=== PATIENT | male | born 1975 | race Caucasian/White ===

== ENCOUNTER 2017-09-29 21:41 | Inpatient (IN) | payer OTHER ==
[~2017-09-29] VITALS: Ht 177.8 cm; Wt 93.4 kg
[2017-09-29 22:55] VITALS: BP 122/69
[2017-09-30] MEDS ORDERED: fentaNYL PF VIAL 100 MCG/2 ML VIAL IV PRN (00:15)
[2017-09-30] MEDS ORDERED: ONDANSETRON PF 4 MG/2 ML VIAL. IV PRN (00:15)
[2017-09-30] MEDS: IV NORMAL SALINE 1000ML BAG 1,000 ML IV SCH ×4 (00:16→20:28)
[2017-09-30 03:00] VITALS: BP 150/87
[2017-09-30] MEDS ORDERED: BUSP5TAB PO (03:41)
[2017-09-30 04:10] LABS: HEMATOCRIT 40.6 % (39.0-53.0); HEMOGLOBIN 14.5 g/dL (13.0-17.5); RED BLOOD COUNT 4.34 x10^6/uL (4.30-5.70); RED CELL DISTRIBUTION WIDTH 13.6 % (11.5-14.5)
[2017-09-30 04:28] LABS: ALBUMIN/GLOBULIN RATIO 0.8 (1.0-1.7); CALCIUM 8.7 mg/dL (8.5-10.1); CREATININE 1.1 mg/dL (0.7-1.3); GFR 73.1; POTASSIUM 3.8 mmol/L (3.5-5.1); TOTAL BILIRUBIN 1.5 mg/dL (0.2-1.0); TOTAL PROTEIN 6.7 g/dL (6.4-8.2)
[2017-09-30 07:00] VITALS: BP 118/71
[2017-09-30] MEDS ORDERED: ACETAMINOPHEN 500 MG TABLET PO PRN (08:30)
[2017-09-30] MEDS: busPIRone 5 MG TABLET. PO SCH (09:57)
--- NOTE | 2017-09-30 10:12 | PDOC1 ---
History and Physical Date of Admission Date of Admission DATE: 09/30/17 TIME: 10:07 Identification/Chief Complaint Chief Complaint Abdominal pain, vomiting Source Source: Caregiver, Chart review, Patient History of Present Illness History of Present Illness Very pleasant 42-year-old male with no significant past medical history acute onset goerge-umbilical and epigastric area abdominal pain, with some vomiting. No recent travels, no recent sick contacts, no suspicious foods. No fever. Went to [facility]. Acute abdominal series showed mild partial SBO. Transferred here. Did have vomiting this morning and had a decent BM this morning and feels much better. I'm able to palpate the belly with no pain. We' ll check a KUB if that is the appropriate test? and if that is okay we'll start a liquid diet then DIANNA Pedraza. Discussed with at bedside No prior history of abdominal surgeries, non-narcotic user Past Medical History Cardiovascular: No pertinent hx Pulmonary: No pertinent hx GI: No pertinent hx Heme/Onc: No pertinent hx Hepatobiliary: No pertinent hx Psych: No pertinent hx Rheumatologic: No pertinent hx Infectious disease: No pertinent hx ENT: No pertinent hx Renal/: No pertinent hx Endocrine: No pertinent hx Dermatology: No pertinent hx Past Surgical History Past Surgical History: No pertinent history Family History Family History: No Significant Social History Smoke: No ALCOHOL: none Drugs: None Current Medications Current Medications Current Medications Sodium Chloride 1,000 ml @ 125 mls/hr Q8HRS IV Last administered on 09/30/17at 08:38; Start 09/30/17 at 00:15 Ondansetron HCl (Zofran) 4 mg PRN Q6HRS PRN IV NAUSEA/VOMITING; Start 09/30/17 at 00:15 Fentanyl Citrate (Fentanyl 2ml Vial) 50 mcg PRN Q4HRS PRN IV PAIN; Start at 00:15 Acetaminophen (Tylenol) 500 mg PRN Q6HRS PRN PO MILD PAIN / TEMP; Start at 08:30 Buspirone HCl (Buspar) 7.5 mg DAILY PO Last administered on 09/30/17at 09:57; Start 09/30/17 at 09:00 Active Scripts Active Reported Buspirone Hcl 5 Mg Tablet 1.5 Tab PO DAILY Allergies Allergies: Coded Allergies: No Known Drug Allergies (Unverified , 09/29/17) ROS Review of System A 14 point ROS was completed with the following noted as positive: Other systems reviewed and negative. \CONSTITUTIONAL: No fever or chills EYES: No recent changes SKIN: No rash or itching CARDIOVASCULAR: No chest pain, syncope, palpitations, or edema RESPIRATORY: No SOB or cough GASTROINTESTINAL: No nausea, vomiting or abdominal pain NEUROLOGICAL: No headaches or weakness ENDOCRINE: No cold or heat intolerance GENITOURINARY: No urgency or frequency of urination MUSCULOSKELETAL: No back pain or joint pain LYMPHATICS: No enlarged lymph nodes PSYCHIATRIC: No anxiety or depression Physical Exam General: Alert, Oriented X3, Cooperative, No acute distress HEENT: Atraumatic, EOMI Lungs: Clear to auscultation, Normal air movement Heart: S1S2, RRR, no thrills, no rubs, no gallops, no murmurs Cardiovascular: S1, S2 Abdomen: Normal bowel sounds, Soft, No tenderness, No hepatosplenomegaly, No masses Male Genitals Exam: normal genitalia, normal prostate Rectal Exam: not examined Extremities: No clubbing, No cyanosis, No edema, Normal pulses, No tenderness/ swelling Skin: No rashes, No breakdown, No significant lesion Neuro: Normal gait, Normal speech, Strength at 5/5 X4 ext, Normal tone, Sensation intact, Cranial nerves 3-12 NL, Reflexes 2+ Psych/Mental Status: Mental status NL, Mood NL Vitals Vitals Vital Signs Date Time Temp Pulse Resp B/P (MAP) Pulse Ox O2 Delivery O2 Flow Rate FiO2 09/30/17 07:00 98.1 69 18 118/71 (87) 95 Room Air 98.1 Labs Labs Laboratory Tests Test 09/30/17 03:35 White Blood Count 8.0 x10^3/uL (4.0-11.0) Red Blood Count 4.34 x10^6/uL (4.30-5.70) Hemoglobin 14.5 g/dL (13.0-17.5) Hematocrit 40.6 % (39.0-53.0) Mean Corpuscular Volume 94 fL (79-100) Mean Corpuscular Hemoglobin 33 pg (25-35) Mean Corpuscular Hemoglobin Concent 36 g/dL (31-37) Red Cell Distribution Width 13.6 % (11.5-14.5) Platelet Count 208 x10^3/uL (140-400) Sodium Level 137 mmol/L (136-145) Potassium Level 3.8 mmol/L (3.5-5.1) Chloride Level 102 mmol/L (98-107) Carbon Dioxide Level 27 mmol/L (21-32) Anion Gap 8 (6-14) Blood Urea Nitrogen 12 mg/dL (8-26) Creatinine 1.1 mg/dL (0.7-1.3) Estimated GFR (Cockcroft-Gault) 73.1 BUN/Creatinine Ratio 11 (6-20) Glucose Level 96 mg/dL (70-99) Calcium Level 8.7 mg/dL (8.5-10.1) Magnesium Level 2.0 mg/dL (1.8-2.4) Total Bilirubin 1.5 mg/dL (0.2-1.0) Aspartate Amino Transf (AST/SGOT) 15 U/L (15-37) Alanine Aminotransferase (ALT/SGPT) 20 U/L (16-63) Alkaline Phosphatase 67 U/L (46-116) Total Protein 6.7 g/dL (6.4-8.2) Albumin 3.0 g/dL (3.4-5.0) Albumin/Globulin Ratio 0.8 (1.0-1.7) Laboratory Tests Test 09/30/17 03:35 White Blood Count 8.0 x10^3/uL (4.0-11.0) Red Blood Count 4.34 x10^6/uL (4.30-5.70) Hemoglobin 14.5 g/dL (13.0-17.5) Hematocrit 40.6 % (39.0-53.0) Mean Corpuscular Volume 94 fL (79-100) Mean Corpuscular Hemoglobin 33 pg (25-35) Mean Corpuscular Hemoglobin Concent 36 g/dL (31-37) Red Cell Distribution Width 13.6 % (11.5-14.5) Platelet Count 208 x10^3/uL (140-400) Sodium Level 137 mmol/L (136-145) Potassium Level 3.8 mmol/L (3.5-5.1) Chloride Level 102 mmol/L (98-107) Carbon Dioxide Level 27 mmol/L (21-32) Anion Gap 8 (6-14) Blood Urea Nitrogen 12 mg/dL (8-26) Creatinine 1.1 mg/dL (0.7-1.3) Estimated GFR (Cockcroft-Gault) 73.1 BUN/Creatinine Ratio 11 (6-20) Glucose Level 96 mg/dL (70-99) Calcium Level 8.7 mg/dL (8.5-10.1) Magnesium Level 2.0 mg/dL (1.8-2.4) Total Bilirubin 1.5 mg/dL (0.2-1.0) Aspartate Amino Transf (AST/SGOT) 15 U/L (15-37) Alanine Aminotransferase (ALT/SGPT) 20 U/L (16-63) Alkaline Phosphatase 67 U/L (46-116) Total Protein 6.7 g/dL (6.4-8.2) Albumin 3.0 g/dL (3.4-5.0) Albumin/Globulin Ratio 0.8 (1.0-1.7) VTE Prophylaxis Ordered VTE Prophylaxis Devices: Yes VTE Pharmacological Prophylaxi: Yes Assessment/Plan Assessment/Plan Mild Partial SBO, seems to have resolved Nonnarcotic user No significant abdominal surgeries/abdominal history Plan: Check KUB (if GS agrees with this choice of test) If KUB is okay, I'm inclined to starting a liquid diet if GS agrees Discussed with patient and RN and at bedside ALEKSANDAR MATTHEW MD Sep 30, 2017 10:12
[2017-09-30 11:00] VITALS: BP 114/72
--- NOTE | 2017-09-30 11:34 | PDOC2 ---
CONSULT Date of Consult Date of Consult DATE: 09/30/17 TIME: 11:30 Reason for Consult Reason for Consult: Abdominal pain Identification/Chief Complaint Chief Complaint Left lower quadrant abdominal pain Source Source: Patient History of Present Illness Reason for Visit: 42-year-old male developed left lower quadrant abdominal pain couple days ago with bloating nausea and vomiting. Seen in the emergency department CT scan at that time showed evidence of small bowel obstruction and inflammation of the sigmoid colon consistent with diverticulitis no evidence of perforation or abscess. Today the patient states he is feeling better still having some mild left lower quadrant abdominal pain did have 1 episode of emesis this morning but then a large bowel movement which improved his condition. Currently denies any nausea Past Medical History Cardiovascular: No pertinent hx Pulmonary: No pertinent hx GI: No pertinent hx Heme/Onc: No pertinent hx Hepatobiliary: No pertinent hx Psych: No pertinent hx Rheumatologic: No pertinent hx Infectious disease: No pertinent hx ENT: No pertinent hx Renal/: No pertinent hx Endocrine: No pertinent hx Dermatology: No pertinent hx Past Surgical History Past Surgical History: No pertinent history Family History Family History: No Significant Social History No ALCOHOL: none Drugs: None Current Medications Current Medications Current Medications Sodium Chloride 1,000 ml @ 125 mls/hr Q8HRS IV Last administered on 09/30/17at 08:38; Start 09/30/17 at 00:15 Ondansetron HCl (Zofran) 4 mg PRN Q6HRS PRN IV NAUSEA/VOMITING; Start 09/30/17 at 00:15 Fentanyl Citrate (Fentanyl 2ml Vial) 50 mcg PRN Q4HRS PRN IV PAIN; Start at 00:15 Acetaminophen (Tylenol) 500 mg PRN Q6HRS PRN PO MILD PAIN / TEMP; Start at 08:30 Buspirone HCl (Buspar) 7.5 mg DAILY PO Last administered on 09/30/17at 09:57; Start 09/30/17 at 09:00 Active Scripts Active Reported Buspirone Hcl 5 Mg Tablet 1.5 Tab PO DAILY Allergies Allergies: Coded Allergies: No Known Drug Allergies (Unverified , 09/29/17) ROS Gastrointestinal: Yes Nausea, Yes Vomiting, Yes Abdominal Pain Physical Exam General: Alert, Oriented X3, Cooperative, mild distress HEENT: Atraumatic, PERRLA, EOMI Lungs: Clear to auscultation, Normal air movement Heart: Regular rate, No murmurs Abdomen: Normal bowel sounds, Soft, Other (palpation left lower quadrant no peritoneal signs) Extremities: No edema Skin: No significant lesion Neuro: Normal speech Psych/Mental Status: Mental status NL Vitals VITALS Vital Signs Date Time Temp Pulse Resp B/P (MAP) Pulse Ox O2 Delivery O2 Flow Rate FiO2 09/30/17 11:00 97.9 65 18 114/72 (86) 95 Room Air 97.9 Labs Labs Laboratory Tests Test 09/30/17 03:35 White Blood Count 8.0 x10^3/uL (4.0-11.0) Red Blood Count 4.34 x10^6/uL (4.30-5.70) Hemoglobin 14.5 g/dL (13.0-17.5) Hematocrit 40.6 % (39.0-53.0) Mean Corpuscular Volume 94 fL (79-100) Mean Corpuscular Hemoglobin 33 pg (25-35) Mean Corpuscular Hemoglobin Concent 36 g/dL (31-37) Red Cell Distribution Width 13.6 % (11.5-14.5) Platelet Count 208 x10^3/uL (140-400) Sodium Level 137 mmol/L (136-145) Potassium Level 3.8 mmol/L (3.5-5.1) Chloride Level 102 mmol/L (98-107) Carbon Dioxide Level 27 mmol/L (21-32) Anion Gap 8 (6-14) Blood Urea Nitrogen 12 mg/dL (8-26) Creatinine 1.1 mg/dL (0.7-1.3) Estimated GFR (Cockcroft-Gault) 73.1 BUN/Creatinine Ratio 11 (6-20) Glucose Level 96 mg/dL (70-99) Calcium Level 8.7 mg/dL (8.5-10.1) Magnesium Level 2.0 mg/dL (1.8-2.4) Total Bilirubin 1.5 mg/dL (0.2-1.0) Aspartate Amino Transf (AST/SGOT) 15 U/L (15-37) Alanine Aminotransferase (ALT/SGPT) 20 U/L (16-63) Alkaline Phosphatase 67 U/L (46-116) Total Protein 6.7 g/dL (6.4-8.2) Albumin 3.0 g/dL (3.4-5.0) Albumin/Globulin Ratio 0.8 (1.0-1.7) Laboratory Tests Test 09/30/17 03:35 White Blood Count 8.0 x10^3/uL (4.0-11.0) Red Blood Count 4.34 x10^6/uL (4.30-5.70) Hemoglobin 14.5 g/dL (13.0-17.5) Hematocrit 40.6 % (39.0-53.0) Mean Corpuscular Volume 94 fL (79-100) Mean Corpuscular Hemoglobin 33 pg (25-35) Mean Corpuscular Hemoglobin Concent 36 g/dL (31-37) Red Cell Distribution Width 13.6 % (11.5-14.5) Platelet Count 208 x10^3/uL (140-400) Sodium Level 137 mmol/L (136-145) Potassium Level 3.8 mmol/L (3.5-5.1) Chloride Level 102 mmol/L (98-107) Carbon Dioxide Level 27 mmol/L (21-32) Anion Gap 8 (6-14) Blood Urea Nitrogen 12 mg/dL (8-26) Creatinine 1.1 mg/dL (0.7-1.3) Estimated GFR (Cockcroft-Gault) 73.1 BUN/Creatinine Ratio 11 (6-20) Glucose Level 96 mg/dL (70-99) Calcium Level 8.7 mg/dL (8.5-10.1) Magnesium Level 2.0 mg/dL (1.8-2.4) Total Bilirubin 1.5 mg/dL (0.2-1.0) Aspartate Amino Transf (AST/SGOT) 15 U/L (15-37) Alanine Aminotransferase (ALT/SGPT) 20 U/L (16-63) Alkaline Phosphatase 67 U/L (46-116) Total Protein 6.7 g/dL (6.4-8.2) Albumin 3.0 g/dL (3.4-5.0) Albumin/Globulin Ratio 0.8 (1.0-1.7) Images Images CT as per history of present illness Assessment/Plan Assessment/Plan Abdominal pain with acute diverticulitis ileus secondary to diverticulitis appears to be improving agree with current medical therapy of IV antibiotics bowel rest will follow TERESE CRESPO MD Sep 30, 2017 11:34
--- NOTE | 2017-09-30 12:28 | RAD ---
Single view of the abdomen 09/30/2017 INDICATION: Follow-up small bowel structure COMPARISON STUDY: None available Discussion: Mildly dilated loops of gas-filled small amount seen in the central abdomen. Some distal bowel gas is noted. Differential considerations include small bowel obstruction which may be partial, versus ileus. No gross pneumoperitoneum is identified though exam is limited for this purpose. No pathologic calcifications are identified. No acute osseous abnormalities are seen. IMPRESSION: Mildly dilated loops of gas-filled small bowel central abdomen. Differential considerations include some degree of bowel obstruction versus ileus Electronically signed by: Russell Herring MD (09/30/2017 12:24 PM) [id number]
[2017-09-30] MEDS: FAMOTIDINE 20 MG/2 ML VIAL IVP SCH ×2 (13:06→20:27)
[2017-09-30 15:00] VITALS: BP 105/64
[2017-09-30 19:00] VITALS: BP 113/71
[2017-09-30 23:00] VITALS: BP 104/62
[2017-10-01 03:00] VITALS: BP 112/64
[2017-10-01] MEDS: IV NORMAL SALINE 1000ML BAG 1,000 ML IV SCH ×3 (05:56→22:10)
[2017-10-01 07:00] VITALS: BP 118/68
--- NOTE | 2017-10-01 08:18 | PDOC ---
DEVENDRA DINH ATHLETIC COACH 10/01/17 0818: SURGICAL PROGRESS NOTE Subjective feels better small amount of flatus not bloated Vital Signs Vital Signs Date Time Temp Pulse Resp B/P (MAP) Pulse Ox O2 Delivery O2 Flow Rate FiO2 10/01/17 03:00 97.9 63 18 112/64 (80) 93 Room Air 97.9 I&O Intake and Output 10/01/17 07:00 Intake Total 0 ml Balance 0 ml Intake Oral 0 ml # Voids 8 General: Alert, Oriented X3, Cooperative, No acute distress Abdomen: Soft, No tenderness, Other (ND) Labs Laboratory Tests Test 09/30/17 03:35 White Blood Count 8.0 x10^3/uL (4.0-11.0) Red Blood Count 4.34 x10^6/uL (4.30-5.70) Hemoglobin 14.5 g/dL (13.0-17.5) Hematocrit 40.6 % (39.0-53.0) Mean Corpuscular Volume 94 fL (79-100) Mean Corpuscular Hemoglobin 33 pg (25-35) Mean Corpuscular Hemoglobin Concent 36 g/dL (31-37) Red Cell Distribution Width 13.6 % (11.5-14.5) Platelet Count 208 x10^3/uL (140-400) Sodium Level 137 mmol/L (136-145) Potassium Level 3.8 mmol/L (3.5-5.1) Chloride Level 102 mmol/L (98-107) Carbon Dioxide Level 27 mmol/L (21-32) Anion Gap 8 (6-14) Blood Urea Nitrogen 12 mg/dL (8-26) Creatinine 1.1 mg/dL (0.7-1.3) Estimated GFR (Cockcroft-Gault) 73.1 BUN/Creatinine Ratio 11 (6-20) Glucose Level 96 mg/dL (70-99) Calcium Level 8.7 mg/dL (8.5-10.1) Magnesium Level 2.0 mg/dL (1.8-2.4) Total Bilirubin 1.5 mg/dL (0.2-1.0) Aspartate Amino Transf (AST/SGOT) 15 U/L (15-37) Alanine Aminotransferase (ALT/SGPT) 20 U/L (16-63) Alkaline Phosphatase 67 U/L (46-116) Total Protein 6.7 g/dL (6.4-8.2) Albumin 3.0 g/dL (3.4-5.0) Albumin/Globulin Ratio 0.8 (1.0-1.7) Problem List diverticulitis, ileus continue abx await resolution of ileus--check xray in AM TERESE CRESPO MD 10/01/17 0943: SURGICAL PROGRESS NOTE Assessment/Plan Patient seen and evaluated much improved us abdominal pain abdomen is soft nondistended with normal active bowel sounds passing flatus was advanced diet to clear liquids. Agree with Ean assessment and plan DEVENDRA DINH APRN Oct 01, 2017 08:18 TERESE CRESPO MD Oct 01, 2017 09:43
--- NOTE | 2017-10-01 09:29 | PDOC ---
PROGRESS NOTES Chief Complaint Chief Complaint Small Bowel obstruction diverticulitis History of Present Illness History of Present Illness Pt seen and examined, sitting up in bed NAD He said that he had a good bowel movement yesterday morning, but today was very small with some gas. Feeling better but still has mild abd pain recommended changes to diet after DC DW at bedside Vitals Vitals Vital Signs Date Time Temp Pulse Resp B/P (MAP) Pulse Ox O2 Delivery O2 Flow Rate FiO2 10/01/17 07:00 97.9 63 18 118/68 (85) 96 Room Air 97.9 Physical Exam General: Alert, Oriented X3, Cooperative, No acute distress Heart: Regular rate, No murmurs Lungs: Clear Abdomen: Soft, Other (ND) Extremities: No clubbing, No edema Skin: No rashes, No significant lesion Review of Systems Review of Systems CO Abd pain denies Nausea denies IVAN denies weakness Assessment and Plan Assessmemt and Plan Small bowel obstruction diverticulitis Plan: IVF Abx- Levoquin and Flagyl Continue bowel rest PT/OT Labs Appreciate input from subspecialties Comment Review of Relevant I have reviewed the following items maritza (where applicable) has been applied. Labs Laboratory Tests Test 09/30/17 03:35 White Blood Count 8.0 x10^3/uL (4.0-11.0) Red Blood Count 4.34 x10^6/uL (4.30-5.70) Hemoglobin 14.5 g/dL (13.0-17.5) Hematocrit 40.6 % (39.0-53.0) Mean Corpuscular Volume 94 fL (79-100) Mean Corpuscular Hemoglobin 33 pg (25-35) Mean Corpuscular Hemoglobin Concent 36 g/dL (31-37) Red Cell Distribution Width 13.6 % (11.5-14.5) Platelet Count 208 x10^3/uL (140-400) Sodium Level 137 mmol/L (136-145) Potassium Level 3.8 mmol/L (3.5-5.1) Chloride Level 102 mmol/L (98-107) Carbon Dioxide Level 27 mmol/L (21-32) Anion Gap 8 (6-14) Blood Urea Nitrogen 12 mg/dL (8-26) Creatinine 1.1 mg/dL (0.7-1.3) Estimated GFR (Cockcroft-Gault) 73.1 BUN/Creatinine Ratio 11 (6-20) Glucose Level 96 mg/dL (70-99) Calcium Level 8.7 mg/dL (8.5-10.1) Magnesium Level 2.0 mg/dL (1.8-2.4) Total Bilirubin 1.5 mg/dL (0.2-1.0) Aspartate Amino Transf (AST/SGOT) 15 U/L (15-37) Alanine Aminotransferase (ALT/SGPT) 20 U/L (16-63) Alkaline Phosphatase 67 U/L (46-116) Total Protein 6.7 g/dL (6.4-8.2) Albumin 3.0 g/dL (3.4-5.0) Albumin/Globulin Ratio 0.8 (1.0-1.7) Medications Current Medications Sodium Chloride 1,000 ml @ 125 mls/hr Q8HRS IV Last administered on 10/01/17at 05:56; Start 09/30/17 at 00:15 Ondansetron HCl (Zofran) 4 mg PRN Q6HRS PRN IV NAUSEA/VOMITING; Start 09/30/17 at 00:15 Fentanyl Citrate (Fentanyl 2ml Vial) 50 mcg PRN Q4HRS PRN IV PAIN; Start at 00:15 Acetaminophen (Tylenol) 500 mg PRN Q6HRS PRN PO MILD PAIN / TEMP; Start at 08:30 Buspirone HCl (Buspar) 7.5 mg DAILY PO Last administered on 09/30/17at 09:57; Start 09/30/17 at 09:00 Famotidine (Pepcid Vial) 20 mg BID IVP Last administered on 09/30/17at 20:27; Start 09/30/17 at 13:00 Levofloxacin/ Dextrose 100 ml @ 100 mls/hr Q24H IV Last administered on at 16:32; Start 09/30/17 at 16:00 Metronidazole 100 ml @ 100 mls/hr Q8HRS IV Last administered on 10/01/17at 05: 56; Start 09/30/17 at 15:00 Active Scripts Active Reported Buspirone Hcl 5 Mg Tablet 1.5 Tab PO DAILY Vitals/I & O Vital Sign - Last 24 Hours 8/1509/30/17 09/30/17 09/30/17 11:00 15:00 19:00 20:00 Temp 97.9 99.1 97.9 97.9 99.1 97.9 Pulse 65 70 75 Resp 18 18 B/P (MAP) 114/72 (86) 105/64 (78) 113/71 (85) Pulse Ox 95 93 96 O2 Delivery Room Air Room Air Room Air Room Air 09/30/17 10/01/17 10/01/17 23:00 03:00 07:00 Temp 97.9 97.9 97.9 97.9 97.9 97.9 Pulse 64 63 63 Resp 18 B/P (MAP) 104/62 (76) 112/64 (80) 118/68 (85) Pulse Ox 95 93 96 O2 Delivery Room Air Room Air Room Air Intake and Output 09/30/17 09/30/17 10/01/17 15:00 23:00 07:00 Intake Total 0 ml Balance 0 ml ALOK ORTIZ III DO Oct 01, 2017 09:29
[2017-10-01] MEDS: FAMOTIDINE 20 MG/2 ML VIAL IVP SCH (10:25)
[2017-10-01] MEDS: busPIRone 5 MG TABLET. PO SCH (10:26)
[2017-10-01 11:00] VITALS: BP 123/74
[2017-10-01 15:00] VITALS: BP 111/71
[2017-10-01 19:00] VITALS: BP 132/79
[2017-10-01] MEDS: FAMOTIDINE 20 MG TABLET. PO SCH (20:51)
[2017-10-01] MEDS: LACTOBACILLUS RHAMNOSUS GG 1 CAPSULE. PO SCH (20:51)
[2017-10-01 23:00] VITALS: BP 145/89
[2017-10-02 03:00] VITALS: BP 144/68
[2017-10-02] MEDS: IV NORMAL SALINE 1000ML BAG 1,000 ML IV SCH (06:00)
[2017-10-02 07:00] VITALS: BP 112/70
[2017-10-02 07:43] LABS: BASO % 1 % (0-3); EOS # 0.2 x10^3/uL (0.0-0.7); EOS % 4 % (0-3); HEMATOCRIT 37.3 % (39.0-53.0); HEMOGLOBIN 13.3 g/dL (13.0-17.5); LYMPH # 1.1 x10^3/uL (1.0-4.8); LYMPH % 22 % (24-48); MEAN CORPUSCULAR HEMOGLOBIN 33 pg (25-35); MEAN CORPUSCULAR HGB CONC 36 g/dL (31-37); MEAN CORPUSCULAR VOLUME 93 fL (79-100); MONO # 0.4 x10^3/uL (0.0-1.1); MONO % 9 % (0-9); NEUT # 3.1 x10^3uL (1.8-7.7); NEUT % 64 % (31-73); PLATELET COUNT 220 x10^3/uL (140-400); RED CELL DISTRIBUTION WIDTH 13.5 % (11.5-14.5); WHITE BLOOD COUNT 4.9 x10^3/uL (4.0-11.0)
[2017-10-02] MEDS: LACTOBACILLUS RHAMNOSUS GG 1 CAPSULE. PO SCH (07:53)
[2017-10-02] MEDS: FAMOTIDINE 20 MG TABLET. PO SCH (07:53)
[2017-10-02] MEDS: busPIRone 5 MG TABLET. PO SCH (07:53)
--- NOTE | 2017-10-02 08:01 | PDOC ---
DEVENDRA DINH [employer] POSITION OFFICER 10/02/17 0801: SURGICAL PROGRESS NOTE Subjective feeling better no n/v + flatus hunger pain Vital Signs Vital Signs Date Time Temp Pulse Resp B/P (MAP) Pulse Ox O2 Delivery O2 Flow Rate FiO2 10/02/17 03:00 97.7 69 16 144/68 (93) 97 Room Air 97.7 I&O Intake and Output 10/02/17 07:00 Intake Total 1220 ml Balance 1220 ml Intake Oral 120 ml IV Total 1100 ml # Voids 3 General: Alert, Oriented X3, Cooperative, No acute distress Abdomen: Soft, No tenderness Labs Laboratory Tests Test 10/02/17 06:20 White Blood Count 4.9 x10^3/uL (4.0-11.0) Red Blood Count 4.00 x10^6/uL (4.30-5.70) Hemoglobin 13.3 g/dL (13.0-17.5) Hematocrit 37.3 % (39.0-53.0) Mean Corpuscular Volume 93 fL (79-100) Mean Corpuscular Hemoglobin 33 pg (25-35) Mean Corpuscular Hemoglobin Concent 36 g/dL (31-37) Red Cell Distribution Width 13.5 % (11.5-14.5) Platelet Count 220 x10^3/uL (140-400) Neutrophils (%) (Auto) 64 % (31-73) Lymphocytes (%) (Auto) 22 % (24-48) Monocytes (%) (Auto) 9 % (0-9) Eosinophils (%) (Auto) 4 % (0-3) Basophils (%) (Auto) 1 % (0-3) Neutrophils # (Auto) 3.1 x10^3uL (1.8-7.7) Lymphocytes # (Auto) 1.1 x10^3/uL (1.0-4.8) Monocytes # (Auto) 0.4 x10^3/uL (0.0-1.1) Eosinophils # (Auto) 0.2 x10^3/uL (0.0-0.7) Basophils # (Auto) 0.0 x10^3/uL (0.0-0.2) Laboratory Tests Test 10/02/17 06:20 White Blood Count 4.9 x10^3/uL (4.0-11.0) Red Blood Count 4.00 x10^6/uL (4.30-5.70) Hemoglobin 13.3 g/dL (13.0-17.5) Hematocrit 37.3 % (39.0-53.0) Mean Corpuscular Volume 93 fL (79-100) Mean Corpuscular Hemoglobin 33 pg (25-35) Mean Corpuscular Hemoglobin Concent 36 g/dL (31-37) Red Cell Distribution Width 13.5 % (11.5-14.5) Platelet Count 220 x10^3/uL (140-400) Neutrophils (%) (Auto) 64 % (31-73) Lymphocytes (%) (Auto) 22 % (24-48) Monocytes (%) (Auto) 9 % (0-9) Eosinophils (%) (Auto) 4 % (0-3) Basophils (%) (Auto) 1 % (0-3) Neutrophils # (Auto) 3.1 x10^3uL (1.8-7.7) Lymphocytes # (Auto) 1.1 x10^3/uL (1.0-4.8) Monocytes # (Auto) 0.4 x10^3/uL (0.0-1.1) Eosinophils # (Auto) 0.2 x10^3/uL (0.0-0.7) Basophils # (Auto) 0.0 x10^3/uL (0.0-0.2) Problem List ileus xray pending plan advance diet if xrays improved TERESE CRESPO MD 10/02/17 1104: SURGICAL PROGRESS NOTE Assessment/Plan Seen and examined by me feeling very comfortable with like to be more passing stool and flatus denies any pain. KUB does not show any worsening of small bowel distention, we'll advance diet if tolerated would agree with discharge to home DEVENDRA DINH APRN Oct 02, 2017 08:01 TERESE CRESPO MD Oct 02, 2017 11:04
[2017-10-02 08:02] LABS: CALCIUM 8.2 mg/dL (8.5-10.1); GFR 81.6; POTASSIUM 3.7 mmol/L (3.5-5.1)
[2017-10-02 11:00] VITALS: BP 125/74
--- NOTE | 2017-10-02 12:58 | PDOC ---
PROGRESS NOTES Chief Complaint Chief Complaint Small Bowel obstruction diverticulitis History of Present Illness History of Present Illness Pt seen and examined, sitting up in bed pt states he has had multiple bowel movements this AM VSS DW RN Vitals Vitals Vital Signs Date Time Temp Pulse Resp B/P (MAP) Pulse Ox O2 Delivery O2 Flow Rate FiO2 10/02/17 11:00 98.1 63 16 125/74 (91) 96 Room Air 98.1 Physical Exam General: Alert, Oriented X3, Cooperative, No acute distress Heart: Regular rate, No murmurs Lungs: Clear Abdomen: Soft, No tenderness Extremities: No clubbing, No edema Skin: No rashes, No significant lesion Labs LABS Laboratory Tests Test 10/02/17 06:20 White Blood Count 4.9 x10^3/uL (4.0-11.0) Red Blood Count 4.00 x10^6/uL (4.30-5.70) Hemoglobin 13.3 g/dL (13.0-17.5) Hematocrit 37.3 % (39.0-53.0) Mean Corpuscular Volume 93 fL (79-100) Mean Corpuscular Hemoglobin 33 pg (25-35) Mean Corpuscular Hemoglobin Concent 36 g/dL (31-37) Red Cell Distribution Width 13.5 % (11.5-14.5) Platelet Count 220 x10^3/uL (140-400) Neutrophils (%) (Auto) 64 % (31-73) Lymphocytes (%) (Auto) 22 % (24-48) Monocytes (%) (Auto) 9 % (0-9) Eosinophils (%) (Auto) 4 % (0-3) Basophils (%) (Auto) 1 % (0-3) Neutrophils # (Auto) 3.1 x10^3uL (1.8-7.7) Lymphocytes # (Auto) 1.1 x10^3/uL (1.0-4.8) Monocytes # (Auto) 0.4 x10^3/uL (0.0-1.1) Eosinophils # (Auto) 0.2 x10^3/uL (0.0-0.7) Basophils # (Auto) 0.0 x10^3/uL (0.0-0.2) Sodium Level 139 mmol/L (136-145) Potassium Level 3.7 mmol/L (3.5-5.1) Chloride Level 107 mmol/L (98-107) Carbon Dioxide Level 26 mmol/L (21-32) Anion Gap 6 (6-14) Blood Urea Nitrogen 9 mg/dL (8-26) Creatinine 1.0 mg/dL (0.7-1.3) Estimated GFR (Cockcroft-Gault) 81.6 Glucose Level 89 mg/dL (70-99) Calcium Level 8.2 mg/dL (8.5-10.1) Review of Systems Review of Systems no co IVAN decreased abd pain no co hematochezia or melena Assessment and Plan Assessmemt and Plan Assessment: Small Bowel obstruction diverticulitis Plna: home meds PO Flagyl and Levoquin advance diet as tolerated Probable DC if ok with Surgery specialty Comment Review of Relevant I have reviewed the following items maritza (where applicable) has been applied. Labs Laboratory Tests Test 10/02/17 06:20 White Blood Count 4.9 x10^3/uL (4.0-11.0) Red Blood Count 4.00 x10^6/uL (4.30-5.70) Hemoglobin 13.3 g/dL (13.0-17.5) Hematocrit 37.3 % (39.0-53.0) Mean Corpuscular Volume 93 fL (79-100) Mean Corpuscular Hemoglobin 33 pg (25-35) Mean Corpuscular Hemoglobin Concent 36 g/dL (31-37) Red Cell Distribution Width 13.5 % (11.5-14.5) Platelet Count 220 x10^3/uL (140-400) Neutrophils (%) (Auto) 64 % (31-73) Lymphocytes (%) (Auto) 22 % (24-48) Monocytes (%) (Auto) 9 % (0-9) Eosinophils (%) (Auto) 4 % (0-3) Basophils (%) (Auto) 1 % (0-3) Neutrophils # (Auto) 3.1 x10^3uL (1.8-7.7) Lymphocytes # (Auto) 1.1 x10^3/uL (1.0-4.8) Monocytes # (Auto) 0.4 x10^3/uL (0.0-1.1) Eosinophils # (Auto) 0.2 x10^3/uL (0.0-0.7) Basophils # (Auto) 0.0 x10^3/uL (0.0-0.2) Sodium Level 139 mmol/L (136-145) Potassium Level 3.7 mmol/L (3.5-5.1) Chloride Level 107 mmol/L (98-107) Carbon Dioxide Level 26 mmol/L (21-32) Anion Gap 6 (6-14) Blood Urea Nitrogen 9 mg/dL (8-26) Creatinine 1.0 mg/dL (0.7-1.3) Estimated GFR (Cockcroft-Gault) 81.6 Glucose Level 89 mg/dL (70-99) Calcium Level 8.2 mg/dL (8.5-10.1) Laboratory Tests Test 10/02/17 06:20 White Blood Count 4.9 x10^3/uL (4.0-11.0) Red Blood Count 4.00 x10^6/uL (4.30-5.70) Hemoglobin 13.3 g/dL (13.0-17.5) Hematocrit 37.3 % (39.0-53.0) Mean Corpuscular Volume 93 fL (79-100) Mean Corpuscular Hemoglobin 33 pg (25-35) Mean Corpuscular Hemoglobin Concent 36 g/dL (31-37) Red Cell Distribution Width 13.5 % (11.5-14.5) Platelet Count 220 x10^3/uL (140-400) Neutrophils (%) (Auto) 64 % (31-73) Lymphocytes (%) (Auto) 22 % (24-48) Monocytes (%) (Auto) 9 % (0-9) Eosinophils (%) (Auto) 4 % (0-3) Basophils (%) (Auto) 1 % (0-3) Neutrophils # (Auto) 3.1 x10^3uL (1.8-7.7) Lymphocytes # (Auto) 1.1 x10^3/uL (1.0-4.8) Monocytes # (Auto) 0.4 x10^3/uL (0.0-1.1) Eosinophils # (Auto) 0.2 x10^3/uL (0.0-0.7) Basophils # (Auto) 0.0 x10^3/uL (0.0-0.2) Sodium Level 139 mmol/L (136-145) Potassium Level 3.7 mmol/L (3.5-5.1) Chloride Level 107 mmol/L (98-107) Carbon Dioxide Level 26 mmol/L (21-32) Anion Gap 6 (6-14) Blood Urea Nitrogen 9 mg/dL (8-26) Creatinine 1.0 mg/dL (0.7-1.3) Estimated GFR (Cockcroft-Gault) 81.6 Glucose Level 89 mg/dL (70-99) Calcium Level 8.2 mg/dL (8.5-10.1) Medications Current Medications Sodium Chloride 1,000 ml @ 125 mls/hr Q8HRS IV Last administered on 10/01/17at 22:10; Start 09/30/17 at 00:15 Ondansetron HCl (Zofran) 4 mg PRN Q6HRS PRN IV NAUSEA/VOMITING; Start 09/30/17 at 00:15 Fentanyl Citrate (Fentanyl 2ml Vial) 50 mcg PRN Q4HRS PRN IV PAIN; Start at 00:15 Acetaminophen (Tylenol) 500 mg PRN Q6HRS PRN PO MILD PAIN / TEMP; Start at 08:30 Buspirone HCl (Buspar) 7.5 mg DAILY PO Last administered on 10/02/17at 07:53; Start 09/30/17 at 09:00 Famotidine (Pepcid Vial) 20 mg BID IVP Last administered on 10/01/17at 10:25; Start 09/30/17 at 13:00; Stop 10/01/17 at 15:31; Status DC Levofloxacin/ Dextrose 100 ml @ 100 mls/hr Q24H IV Last administered on at 17:41; Start 09/30/17 at 16:00 Metronidazole 100 ml @ 100 mls/hr Q8HRS IV Last administered on 10/02/17at 06: 17; Start 09/30/17 at 15:00 Lactobacillus Rhamnosus (Culturelle) 1 cap BID PO Last administered on at 07:53; Start 10/01/17 at 21:00 Famotidine (Pepcid) 20 mg BID PO Last administered on 10/02/17at 07:53; Start at 21:00 Active Scripts Active Reported Buspirone Hcl 5 Mg Tablet 1.5 Tab PO DAILY Vitals/I & O Vital Sign - Last 24 Hours 10/01/17 10/01/17 10/01/17 10/01/17 15:00 19:00 20:00 23:00 Temp 97.9 97.7 97.9 97.9 97.7 97.9 Pulse 57 62 89 Resp 16 B/P (MAP) 111/71 (84) 132/79 (96) 145/89 (107) Pulse Ox 96 97 97 O2 Delivery Room Air Room Air Room Air Room Air 10/02/17 10/02/17 10/02/17 10/02/17 03:00 07:00 08:00 11:00 Temp 97.7 97.9 98.1 97.7 97.9 98.1 Pulse 69 53 63 Resp 16 B/P (MAP) 144/68 (93) 112/70 (84) 125/74 (91) Pulse Ox 97 96 96 O2 Delivery Room Air Room Air Room Air Room Air Intake and Output 10/01/17 10/01/17 10/02/17 15:00 23:00 07:00 Intake Total 1100 ml 120 ml Balance 1100 ml 120 ml ALOK ORTIZ III DO Oct 02, 2017 12:57
--- NOTE | 2017-10-02 17:04 | RAD ---
Acute abdominal series. 10/02/2017 5:00 AM Indication: follow-up ileius Comparison Study: Abdominal radiograph, September 30, 2017 Discussion: Linear opacities in the left lung base suggesting discoid atelectasis. No pneumothorax or pleural effusion is identified. Heart size is normal. No gross pneumoperitoneum is identified. Dilated loops of small bowel are seen in the central abdomen. Some distal bowel gas is seen. Findings are concerning for ongoing small bowel obstruction. This could be a partial obstruction given the presence of distal bowel gas. No acute osseous changes are identified. IMPRESSION: 1.Persistent dilated loops of small bowel in the central abdomen possibly representing ongoing partial small bowel obstruction. 2. Mild left basilar atelectasis Electronically signed by: Russell Herring MD (10/02/2017 5:00 PM) [id number]
--- NOTE | 2017-10-06 11:27 | DS ---
DATE OF DISCHARGE: 10/02/2017 ADMISSION DIAGNOSIS: Diverticulitis with small-bowel obstruction. DISCHARGE DIAGNOSIS: Resolving small-bowel obstruction and resolving diverticulitis. HOSPITAL COURSE: The patient is a pleasant 42-year-old male presented with diverticulitis. He was admitted. We gave him IV Flagyl and Levaquin, bowel rest and fluids. Over the next few days, he did well. We advanced his diet and discharge. DISPOSITION: Home. ACTIVITY: As tolerated. DIET: Low sodium. MEDICATIONS: Please see the MRAD. TOTAL TIME ON DISCHARGE: Thirty-eight minutes. CARMENL Mykel ORTIZ DO DR: IRIS/agnieszka JOB#: [id number] / [id number]
== END 2017-10-02 14:15 | disposition home or self-care (01) | DRG 389 ==
LOC: 4 NORTH 23:00
PROVIDERS: ADMIT Family Medicine; ATTEND Family Medicine
DX: K56.600 Partial intestinal obstruction, unspecified as to cause (principal); E44.0 Moderate protein-calorie malnutrition; K57.12 Diverticulitis of small intestine without perforation or abscess without bleeding; Z68.29 Body mass index [BMI] 29.0-29.9, adult
CPT/HCPCS: 36415; 74018; 74022; 80048; 80053; 83735; 85025; 85027; J1956; J3490; J7030; S0028